=== PATIENT | male | born 1965 | race Caucasian/White ===

== ENCOUNTER 2019-01-30 07:23 | Day surgery (SDC) | payer OTHER ==
[2019-01-30] MEDS ORDERED: PROPOFOL INJ 200 MG/20 ML VIAL IV ONE ×2 (07:29→11:09)
--- NOTE | 2019-01-30 08:56 | Operative Report ---
Operative Report DATE OF SURGERY: 01/30/19 Operative Report: The risks, benefits and alternatives of the procedure including the risk of bleeding, perforation requiring surgery have been explained to the patient in detail and informed consent has been obtained. The patient is placed in a left, lateral decubital position. Timeout was called. Propofol medication is administered. Rectal examination is done which did not reveal any masses, tears or fissures. An Olympus videoscope was introduced into the patient's rectum. The scope was then carefully advanced all the way to the cecum. The cecum was identified by the usual anatomical landmarks including the ileocecal valve as well as the appendiceal office. Photodocumentation is obtained. Scope was then sequentially pulled back via the various segments of the colon including the ascending colon, hepatic flexure, transverse colon, splenic flexure, descending colon and finally into the rectosigmoid portions of the colon. Retroflexion maneuver is performed. The risks benefits and alternatives of the procedure explained to the patient in detail and informed consent is obtained.A GIF Olympus video scope was inserted into the patient's mouth and hypopharynx ,the esophagus is identified intubated and insufflated ,the scope was then advanced through the esophagus stomach and duodenum ,retroflexion maneuver is done ,the esophagus stomach and first and second portions of the duodenum examined. PREOPERATIVE DIAGNOSIS: Personal history of polyp. Epigastric pain POSTOPERATIVE DIAGNOSIS: Rectal polyp status post biopsy. Internal hemorrhoids. gastritis status post biopsy rule out Helicobacter pylori. Duodenitis OPERATION: Colonoscopy with biopsy. EGD with biopsy SURGEON: RANI YU ANESTHESIA: LMAC TISSUE REMOVED OR ALTERED: As noted above. COMPLICATIONS: None. ESTIMATED BLOOD LOSS: None. INTRAOPERATIVE FINDINGS: As noted above. PROCEDURE: Patient tolerated the procedure well. No immediate postprocedure complications are noted. Patient is discharged in good condition. Discharge date 01/31/2019. Discharge diet: Regular. Discharge activity: Regular. 2 to 3-week follow-up to discuss findings. Patient is instructed to call the office or proceed to the emergency room should there be any further problems or questions. Wait on the pathology. 5-year surveillance colonoscopy.
[2019-01-30 09:40] VITALS: BP 107/76
== END 2019-01-30 09:38 | disposition home or self-care (01) ==
LOC: END 07:23
PROVIDERS: ATTEND Internal Medicine Gastroenterology
DX: Z12.11 Encounter for screening for malignant neoplasm of colon (principal); D12.8 Benign neoplasm of rectum; K64.8 Other hemorrhoids; Z86.010 Personal history of colon polyps; K29.50 Unspecified chronic gastritis without bleeding; K29.80 Duodenitis without bleeding
CPT/HCPCS: 43239; 45380; 88305 ×2; J2704; 813